=== PATIENT | male | born 1955 | race Caucasian/White ===

== ENCOUNTER → 2018-07-14 | Outpatient (CLI) | payer BC | LOC: COL.VAS 11:32 | DX: C18.6 Malignant neoplasm of descending colon (principal); I82.432 Acute embolism and thrombosis of left popliteal vein; I82.812 Embolism and thrombosis of superficial veins of left lower extremity; I26.99 Other pulmonary embolism without acute cor pulmonale ==

== ENCOUNTER 2019-02-13 10:01 | Outpatient (CLI) | payer MEDICARE ==
[2019-02-13] VITALS (7 sets, daily range): BP systolic 113–140; BP diastolic 67–86; PULSE 70–81; TEMP 98.9
[~2019-02-13] VITALS: Ht 182.9 cm; Wt 94.5 kg
[2019-02-13] MEDS ORDERED: ELIQUIS 5MG PO (10:38)
[2019-02-13] MEDS ORDERED: PRINZIDE 12.5 M1 TAB PO (10:39)
[2019-02-13] MEDS ORDERED: JARDIANCE25 PO (10:40)
[2019-02-13] MEDS ORDERED: LIPITOR20 MG PO (10:40)
[2019-02-13] MEDS ORDERED: GLUCOPHAGE1000 MG PO (10:41)
[2019-02-13] MEDS ORDERED: K-DUR 10 MEQ T10 MEQ PO (10:42)
--- NOTE | 2019-02-13 12:47 | NUR ---
SEE MERGE DOCUMENTATION FOR MEDICATION ADMINISTRATION TIMES AND INTRA/POST PROCEDURE SEDATION ASSESSMENTS.
--- NOTE | 2019-02-13 13:15 | NUR ---
Pt returned to EU 9 per bed s/p IVC filter removal. Pt resting well, family at bedside.
--- NOTE | 2019-02-13 14:40 | NUR ---
Pt has done well during recovery, pt has remained awake and alert, conversant with in room. dressing to puncture site to right neck remains clean and dry. dc instructions reviewed, written instructions provided. pt and sig other deny questions at time of departure. he is escorted to exit via wheelchair. port access dc'd with 2 saline flushes followed by a heparin flush.
== END 2019-02-13 14:40 | disposition home or self-care (01) ==
LOC: COL.CAR 10:01
DX: Z45.09 Encounter for adjustment and management of other cardiac device (principal); I82.409 Acute embolism and thrombosis of unspecified deep veins of unspecified lower extremity; I26.99 Other pulmonary embolism without acute cor pulmonale; Z85.038 Personal history of other malignant neoplasm of large intestine; Z85.05 Personal history of malignant neoplasm of liver; Z92.21 Personal history of antineoplastic chemotherapy; Z90.89 Acquired absence of other organs; Z79.84 Long term (current) use of oral hypoglycemic drugs; Z79.899 Other long term (current) drug therapy
CPT/HCPCS: J1644; J2250; J3010; J7120; Q9967

== ENCOUNTER → 2019-12-14 | Outpatient (CLI) | payer MEDICARE ==
[~2019-12-14] VITALS: Ht 182.9 cm; Wt 108.1 kg
[2019-12-14] VITALS (15 sets, daily range): BP systolic 103–158; BP diastolic 56–96; PULSE 74–87
[~2019-12-14] MED LIST: ELIQUIS 5MG PO; GLUCOPHAGE1000 MG PO; JARDIANCE25 PO; K-DUR 10 MEQ T10 MEQ PO; LIPITOR20 MG PO; PRINZIDE 12.5 M1 TAB PO
[2019-12-14 10:18] LABS: PROTHROMBIN TIME 11.5 SECONDS (9.7-12.8)
== END ==
LOC: COL.RAD 09:26
PROVIDERS: Internal Medicine
DX: C18.6 Malignant neoplasm of descending colon (principal); K76.9 Liver disease, unspecified
CPT/HCPCS: J2250; J3010

== ENCOUNTER 2023-10-19 08:13 | Outpatient (CLI) | payer MEDICARE ==
[~2023-10-19] VITALS: Ht 182.9 cm; Wt 106.4 kg
[2023-10-19] VITALS (12 sets, daily range): BP systolic 139–170; BP diastolic 79–95; PULSE 70–84; TEMP 97.8
[~2023-10-19 08:13] MED LIST changes: +B-12 500 MCG PO; +PROBIOTIC BLEN1 EACH PO
[2023-10-19] MEDS ORDERED: COLESTID 1GM1 G PO (08:42)
[2023-10-19] MEDS ORDERED: LEXAPRO 10MG10 MG PO (08:43)
[2023-10-19] MEDS ORDERED: LOMOTIL 0.025 M1 TAB PO (08:44)
--- NOTE | 2023-10-19 12:43 | NUR ---
PT TOLERATED RECOVERY PERIOD WELL. PT DID NOT VERBALIZE INCREASED CHEST PAIN OR SHORTNESS OF BREATH THROUGHOUT RECOVERY. IV DISCONTINUED UPON DISCHARGE AND PT ASSISTED TO MAIN LOBBY VIA WHEELCHAIR. DISCHARGE ORDERS RECIEVED VERBALLY OVER THE PHONE FROM DR. CHIN. BANDAID ON CHEST REMAINED CLEAN DRY AND INTACT THROUGHOUT RECOVERY.
== END 2023-10-19 12:45 | disposition home or self-care (01) ==
LOC: COL.RAD 08:13
DX: J90 Pleural effusion, not elsewhere classified (principal); K76.9 Liver disease, unspecified; J98.11 Atelectasis; C18.6 Malignant neoplasm of descending colon
CPT/HCPCS: 32106

== ENCOUNTER → 2023-10-28 | Outpatient (CLI) | payer MEDICARE ==
[~2023-10-28] VITALS: Ht 182.9 cm; Wt 103.4 kg
[~2023-10-28] MED LIST changes: +COLESTID 1GM1 G PO; +LEXAPRO 10MG10 MG PO; +LOMOTIL 0.025 M1 TAB PO
[2023-10-28 10:42] VITALS: BP 138/79; PULSE 79; TEMP 97.5
--- NOTE | 2023-10-28 11:33 | NUR ---
THORACENTESIS CANCELLED. NOT ENOUGH FLUID TO DRAIN. PATIENT HAS ALL OF HIS BELONGINGS. ESCORTED PATIENT OUT. ALL NEEDS MET.
== END ==
LOC: COL.RAD 10:19
DX: C18.6 Malignant neoplasm of descending colon (principal); J90 Pleural effusion, not elsewhere classified